=== PATIENT | male | born 1965 | race Caucasian/White ===

== ENCOUNTER 2017-07-31 00:05 | Emergency (ER) | payer MEDICAID ==
[2017-07-31 00:49] LABS: APPEARANCE CLEAR (CLEAR); BILIRUBIN NEGATIVE (NEGATIVE); COLOR YELLOW (YELLOW); GLUCOSE NEGATIVE (NEGATIVE); KETONE NEGATIVE (NEGATIVE); NITRITE NEGATIVE (NEGATIVE); PROTEIN NEGATIVE (NEGATIVE); SPECIFIC GRAVITY 1.025 (1.005-1.020); UROBILINOGEN NORMAL (NORMAL)
[2017-07-31 00:50] LABS: BACTERIA FEW /hpf (NONE SEEN); EPITHELIAL CELLS 0-5 /hpf (0-5); MUCUS <1+ /lpf (NONE SEEN); RED CELLS - URINE 0-5 /hpf (0-5); WHITE CELLS - URINE 0-5 /hpf (0-5)
[2017-07-31 01:12] LABS: BASOPHILS 0.2 % (0-2); EOSINOPHILS 1.8 % (0-7); HEMATOCRIT 42.4 % (42.0-54.0); HEMOGLOBIN 14.7 g/dL (13.5-17.5); IMMATURE GRANULOCYTES 0.2 % (0-5); LYMPHOCYTES 25.5 % (15-50); MCH 31.5 pg (26.0-34.0); MCHC 34.7 g/dL (31.0-37.0); MEAN PLATELET VOLUME 9.7 fL (7.4-10.4); MONOCYTES 8.6 % (2-11); NEUTROPHILS 63.7 % (40-80); PLATELET COUNT 170 10x3/uL (130-400); RBC 4.66 10x6/uL (4.20-6.10); RDW 13.1 % (11.5-14.5); WBC 12.1 10x3/uL (4.8-10.8)
[2017-07-31 01:28] LABS: ALBUMIN 3.7 g/dL (3.4-5.0); ANION GAP 12.9 mmol/L (8-16); BILIRUBIN - TOTAL 0.28 mg/dL (0.2-1.3); CALCIUM 9.1 mg/dL (8.5-10.1); CARBON DIOXIDE 28.5 mmol/L (21.0-32.0); CREATININE - SERUM 1.2 mg/dL (0.6-1.3); POTASSIUM - SERUM 3.4 mmol/L (3.5-5.1); PROTEIN - SERUM 6.5 g/dL (6.4-8.2)
== END 2017-07-31 02:05 | disposition home or self-care (01) ==
LOC: D.ER 00:05
PROVIDERS: Emergency Medicine; Physician Assistant
DX: R10.2 Pelvic and perineal pain (principal); R30.0 Dysuria; F17.200 Nicotine dependence, unspecified, uncomplicated

== ENCOUNTER 2018-03-12 19:07 | Emergency (ER) | payer MEDICAID ==
[~2018-03-12] VITALS: Ht 177.8 cm; Wt 75.0 kg
[2018-03-12 19:13] VITALS: Ht 177.8 cm; Wt 75.0 kg
[2018-03-12] MEDS ORDERED: CIPRO500 MG PO (19:55)
[2018-03-12 20:26] LABS: APPEARANCE CLEAR (CLEAR); BILIRUBIN NEGATIVE (NEGATIVE); COLOR YELLOW (YELLOW); GLUCOSE NEGATIVE (NEGATIVE); KETONE NEGATIVE (NEGATIVE); NITRITE NEGATIVE (NEGATIVE); PROTEIN NEGATIVE (NEGATIVE); UROBILINOGEN NORMAL (NORMAL)
[2018-03-12 20:28] LABS: BACTERIA FEW /hpf (NONE SEEN); RED CELLS - URINE 0-5 /hpf (0-5); WHITE CELLS - URINE 0-5 /hpf (0-5)
[2018-03-12 20:46] VITALS: BP 138/79
== END 2018-03-12 20:47 | disposition home or self-care (01) ==
LOC: D.ER 19:07
PROVIDERS: Family Medicine
DX: N41.0 Acute prostatitis (principal); F17.200 Nicotine dependence, unspecified, uncomplicated; R30.0 Dysuria; Z86.73 Personal history of transient ischemic attack (TIA), and cerebral infarction without residual deficits; Z87.438 Personal history of other diseases of male genital organs

== ENCOUNTER 2018-10-29 19:48 | Emergency (ER) | payer MEDICAID ==
[~2018-10-29] VITALS: Ht 177.8 cm; Wt 68.6 kg
[~2018-10-29 19:48] MED LIST: CIPRO500 MG PO
[2018-10-29 20:22] VITALS: Ht 177.8 cm; Wt 68.6 kg
[2018-10-29 21:34] LABS: INR 0.97 (0.85-1.17); PROTIME 12.4 SECONDS (11.6-15.0)
[2018-10-29 21:35] LABS: APTT 34.2 SECONDS (22.8-39.4)
[2018-10-29 21:37] LABS: BASOPHILS 0.2 % (0-2); EOSINOPHILS 1.9 % (0-7); HEMATOCRIT 42.8 % (42.0-54.0); HEMOGLOBIN 15.3 g/dL (13.5-17.5); IMMATURE GRANULOCYTES 0.3 % (0-5); LYMPHOCYTES 26.3 % (15-50); MCH 33.2 pg (26.0-34.0); MCHC 35.7 g/dL (31.0-37.0); MCV 92.8 fL (80.0-100.0); MEAN PLATELET VOLUME 9.4 fL (7.4-10.4); MONOCYTES 7.6 % (2-11); NEUTROPHILS 63.7 % (40-80); PLATELET COUNT 163 10x3/uL (130-400); RBC 4.61 10x6/uL (4.20-6.10); RDW 13.8 % (11.5-14.5); WBC 10.1 10x3/uL (4.8-10.8)
[2018-10-29 21:51] LABS: ALKALINE PHOSPHATASE 47 U/L (46-116); ALT (SGPT) 25 U/L (10-68); BILIRUBIN - TOTAL 0.33 mg/dL (0.2-1.3); CALC OSMOLALITY 282 mosm/kg (275-300); CALCIUM 9.4 mg/dL (8.5-10.1); CARBON DIOXIDE 29.5 mmol/L (21.0-32.0); CHLORIDE - SERUM 103 mmol/L (98-107); CREATININE - SERUM 0.9 mg/dL (0.6-1.3); GLUCOSE 91 mg/dL (74-106); POTASSIUM - SERUM 3.8 mmol/L (3.5-5.1); PROTEIN - SERUM 7.4 g/dL (6.4-8.2); SODIUM 141 mmol/L (136-145); UREA NITROGEN 19 mg/dL (7-18); eGFR NON AFRICAN AMERICAN > 90 mL/min (90-120)
[2018-10-29 21:56] LABS: CKMB 0.7 U/L (0.0-3.6); CREATINE KINASE 83 UL (21-232); MAGNESIUM - SERUM 2.1 mg/dL (1.8-2.4)
[2018-10-29 21:58] LABS: TROPONIN-I < 0.017 ng/mL (0.000-0.060)
[2018-10-30 00:59] VITALS: BP 113/78
== END 2018-10-30 01:06 | disposition home or self-care (01) ==
LOC: D.ER 19:48
PROVIDERS: Family Medicine
DX: R53.1 Weakness (principal); R51 Headache; F43.10 Post-traumatic stress disorder, unspecified; F17.200 Nicotine dependence, unspecified, uncomplicated